=== PATIENT | female | born 1955 | race Caucasian/White ===

== ENCOUNTER 2022-10-05 11:13 | Emergency (ER) | payer BC ==
--- OUTSIDE RECORDS SUMMARY | 2022-10-05 11:18 | XMS REPORT | Continuity of Care Document ---
:1955 Author Organization [facility] t Address [address] [place] [address] [address] [place] [address] Care Team Providers Name Role Phone OUMAR GARVIN Primary Care Physician Unavailable Oumar Garvin Attending Clinician Unavailable Ricardo Robison DO Attending Clinician Oumar Garvin Attending Clinician Unavailable KAMERON PARKS Attending Clinician Unavailable ROSALVA SAENZ Attending Clinician Unavailable Zayda Aguirre Attending Clinician ZAYDA MUELLER Attending Clinician Unavailable Oumar Garvin Admitting Clinician Unavailable Payers Payer Name Policy Type Policy Number Effective Date Expiration Date [facility] [id number] 2004 00:00:00 Problems Condition Condition Condition Status Onset Resolution Last Treating Co mments Source Name Details Category Date Date Treatment Clinician Date Tenosynovi Tenosynovi Disease Active 2020-[address] [facility] tis of 2-23 [facility] finger and finger and 00:00: Me dical hand hand 00 Center Acquired Acquired Disease Active 2020-04 [facility] trigger trigger 2-23 [facility] finger of finger of 00:00: Medi sugey right right 00 Center middle middle finger finger Depression Depression Disease Active U nivers , , 04-25 ity of [place] depression depression Br anch type type Grieving Grieving Disease Active Unive rs 04-25 ity of 00:00: [place] 00 Medical Branch Positive Positive Disease Active 2020-0 Unive rs depression depression 04-25 [place] Sleep Sleep Disease Active 2020-0 Univers difficulti difficulti 04-25 it y of es es 00:00: [place] 00 Medical Branch Allergies, Adverse Reactions, Alerts Allergy Allergy Status Severity Reaction(s) Onset Inactive Treating Comm ents Source Name Type Date Date Clinician HYDROCOD Allergy Active Itching 2020-[address] ONE 06-09 [facility] 00:[facility]: Medical 00 [place] Hydrocod Propensi Active Itching 2020-04 [facility] one ty to 06-09 [facility] adverse 00:00: Medical reaction 00 [place] s Morphine Propensi Active Itching 2020-0 Unive rs ty to -08 ity of adverse 00:00: [place] reaction [address] [facility] Penicill Propensi Active Itching 2020-0 Unive rs in ty to 1-08 ity of adverse 00:00: [place] reaction 00 [facility] Branch MORPHINE DRUG Active ITCHING 2020-0 Univers INGREDI 08 ity of 00:00: [place] 00 Medical Branch PENICILL DRUG Active ITCHING 2020-0 Univers IN INGREDI 08 ity of 00:00: [place] 00 Medical Branch MORPHINE Allergy Active Itching 2020-0 [facility] 04-24 00:00: 00 PENICILL Allergy Active Itching 2020-0 [facility] IN 04-24 00:00: 00 Morphine Drug Active Itching 1-[address] Allergy 04-24 [facility] 00:00: Medical 00 [place] Penicill Drug Active Itching 2020-[address] in Allergy 04-24 [facility] 00:00: Medical 00 [place] No Known DA Active U 2002- [facility] Food 0-02 [facility] [place] No Known DA Active U 2002-04 [facility] Other 0-02 [facility] [place] No Known DA Active U 2002- [facility] Drug 0-02 [facility] Intolera 00:00: [facility] [place] No Known DA Active U 2002-04 [facility] Contrast 0-02 [facility] 00:[facility]: [facility] [place] No Known DA Active U 2002- [facility] Drug 0- [facility] Allergie 00:00: [facility] [place] NO KNOWN Drug Active Univers ALLERGIE Class ity of S [facility] Social History Social Habit Start Date Stop Date Quantity Comments Source History of tobacco Current smoker [facility] Exposure to Not sure University of SARS-CoV-2 (event) [facility] Alcohol intake 2022-01-11 2022-01-11 [facility]er [facility]00 [facility] alcohol Medical Center (finding) Tobacco use and 2021-04-08 2021-04-08 Smokeless [address] [facility] exposure 00:00:00 00:00:00 non-user Medical Center Alcohol Comment 2021-04-08 2021-04-[address] [facility] 00:00:00 00:00:00 Medical Center History SDOH 2020-04-24 2020-04-24 2 University o f Alcohol Frequency 00:00:00 00:00:00 [facility] Branch History SDOH 2020-04-24 2020-04-24 1 University o f Alcohol Std Drinks 00:00:00 00:00:00 [facility] History SDOH 2020-04-24 2020-04-24 1 University o f Alcohol Binge 00:00:00 00:00:00 [facility] al Branch Cigarettes smoked 2020-04-24 2020-04-24 Univers ity of current (pack per 00:00:00 00:00:00 [facility] ) - Reported Branch Cigarette 2020-04-24 2020-04-24 University of pack-years 00:00:00 00:00:00 [facility] Sex Assigned At [address] [facility] 00:00:00 00:00:00 Medical Center Smoking Status Start Date Stop Date Source Ex-smoker 2021-04-08 00:00:00 2021-04-08 00:00:00 [facility] Medications Ordered Filled Start Stop Current Ordering Indication Dosage Frequency Signature Comments Components Source Medication Medication Date Date Medication? Clinician (SIG) Name Name meloxicam 2021- No 15mg QD Take 1 [facility] (Mobic) 15 12-07 tablet (15 Maria Luisa kes MG tablet 00:00: 23:59 mg total) Me dical 00 :00 by mouth Center daily for 30 days. levothyroxi 2020-04 Yes 50ug Take [address] ne 2-24 mcg by Lukes (SYNTHROID, 10:20: mouth Medic al LEVOTHROID) 02 Every Center 50 MCG morning on tablet an empty stomach. buPROPion 2020-04 Yes 150mg QD Take [address] (WELLBUTRIN 2-24 mg by Lukes XL) 150 MG 10:20: mouth Medica l 24 hr 02 daily. Center tablet ALPRAZolam 2020-04 Yes .5mg Take 0.[address] (XANAX) 0.5 2-24 mg by Lukes MG tablet 10:20: mouth Medical 02 every Center night as needed for Anxiety. lisinopril- 2020-04 Yes 1{tbl} QD Take [address] hydroCHLORO 2-23 tablet by Willie es thiazide 10:21: mouth Medical (PRINZIDE,Z 15 daily. Center ESTORETIC) 10-12.5 mg per tablet [place] 600 2020-04 Yes 1{tbl} Take [address] mg Tab 2-13 tablet by Maria Luisakes 00:00: mouth 3 Medical 00 (three) Center times daily with meals. lisinopriL- Yes 1{tbl} Take 1 Un ginny hydrochloro 1-08 tablet by ity of thiazide 16:12: mouth [place] 10-12.5 mg 14 daily. Medical per tablet Branch lisinopriL- Yes 1{tbl} Take 1 Un ginny hydrochloro 1-08 tablet by ity of thiazide 16:12: mouth [place] 10-12.5 mg 14 daily. Medical per tablet Branch levothyroxi Yes Take by Uni vers ne sodium 1-08 mouth. ity of (SYNTHROID 15:48: [place] ORAL) 40 Medical Branch bupropion Yes Take by Unive rs HCl 1-08 mouth. ity of (WELLBUTRIN 15:48: [place] ORAL) 40 Medical Branch levothyroxi Yes Take by Uni vers ne sodium 1-08 mouth. ity of (SYNTHROID 15:48: [place] ORAL) 40 Medical Branch bupropion Yes Take by Unive rs HCl 1-08 mouth. ity of (WELLBUTRIN 15:48: [place] ORAL) 40 [facility] Immunizations Ordered Filled Immunization Date Status Comments Sour e Immunization Name Name Influenza Virus 2020-02-24 Completed Universit y of Vaccine 00:00:00 [facility] Influenza Virus 2020-02-24 Completed Universit y of Vaccine 00:00:00 [facility] TDAP 2020-01-08 Completed University of 00:00:00 [facility] TDAP 2020-01-08 Completed University of 00:00:00 [facility] Zoster Vaccine 2019-05-18 Completed University of Recombinant 00:00:00 [facility] Zoster Vaccine 2019-05-18 Completed University of Recombinant 00:00:00 [facility] Zoster Vaccine 2019-04-17 Completed University of Recombinant 00:00:00 [facility] Zoster Vaccine 2019-04-17 Completed University of Recombinant 00:00:00 [facility] Vital Signs Vital Name Observation Time Observation Value Comments Source HEIGHT 2021-03-29 13:39:00 162.6 cm WEIGHT 2021-03-29 13:39:00 94.348 kg Systolic blood 2020-04-24 15:45:00 146 mm[Hg] [facility] Diastolic blood 2020-04-24 15:45:00 81 mm[Hg] [facility] Heart rate 2020-04-24 15:45:00 85 /min [facility] Body height 2020-04-24 15:45:00 160 cm [facility] Body weight 2020-04-24 15:45:00 86.183 kg [facility] BMI 2020-04-24 15:45:00 33.66 kg/m2 [facility] Oxygen saturation 2020-04-24 15:45:00 95 /min [facility] in Arterial blood Medical anch by Pulse oximetry Systolic blood 2022-01-11 11:11:00 117 mm[Hg] [facility] Diastolic blood 2022-01-11 11:11:00 74 mm[Hg] [facility] Body height 2022-01-11 11:11:[address] [facility] Body weight 2022-01-11 11:11:[address] [facility] BMI 2022-01-11 11:11:00 35.19 kg/m2 [facility] HEIGHT 2021-04-05 12:32:00 162.6 cm WEIGHT 2021-04-05 12:32:00 92.987 kg Procedures Procedure Date / Time Performed Performing Clinician [facility] e XR ANKLE 3 VIEWS RIGHT 2021-12-07 11:51:00 [facility] Plan of Care Planned Activity Planned Date Details Comments Source Future Scheduled 2030-01-07 DTAP/TDAP/TD VACCINES [facility] Test 00:00:00 (2 - Td or Tdap) [code Medic ms Center = DTAP/TDAP/TD VACCINES (2 - Td or Tdap)] Future Scheduled 2023-01-[address] [facility] Test 00:00:00 Counseling and Medical Cente r Screening (12+) [code = Tobacco Cessation Counseling and Screening (12+)] Future Scheduled 2022-12-[address] [facility] Test 00:00:00 (Season Ended) [code = Medic ms Center Influenza Vaccine (Season Ended)] Future Scheduled 2022-04-[address] [facility] Test 00:00:00 (12+) [code = Medical Center DEPRESSION SCREENING (12+)] Future Scheduled 2007-11-21 SHINGLES VACCINES ([address] [facility] Test 00:00:00 2) [code = SHINGLES [facility] VACCINES (1 of 2)] Future Scheduled 2002 Lipid panel (procedure) [facility] Test 00:00:00 [code = 97971073] Medical Ce nter Future Scheduled 1978 Screening for malignant [facility] Test 00:00:00 neoplasm of cervix Medical C enter (procedure) [code = 646885582] Future Scheduled 1975-11-21 HEPATITIS C SCREENING [facility] Test 00:00:00 [code = HEPATITIS C Medical Center SCREENING] Future Scheduled 1958-05-23 COVID-19 VACCINE (#1) [facility] Test 00:00:00 [code = COVID-[address] VACCINE (#1)] Future Scheduled 1957 Screening for malignant [facility] Test 00:00:00 neoplasm of breast Medical C enter (procedure) [code = 102236076] Future Scheduled 1957 CT Colonography (combo) [facility] Test 00:00:00 [code = CT Colonography [facility] (combo)] Future Scheduled 1957 Screening for malignant [facility] Test 00:00:00 neoplasm of colon Medical Ce nter (procedure) [code = 485980774] Future Scheduled 1957 Screening for malignant [facility] Test 00:00:00 neoplasm of colon Medical Ce nter (procedure) [code = 479548016] Future Scheduled 1957 Screening for malignant [facility] Test 00:00:00 neoplasm of colon Medical Ce nter (procedure) [code = 908802695] Future Scheduled 1957 Screening for malignant [facility] Test 00:00:00 neoplasm of colon Medical Ce nter (procedure) [code = 765127464] Future Scheduled 1955 Sigmoidoscopy [code = [facility] Test 00:00:00 Sigmoidoscopy] Medical Cente r Encounters Start End Encounter Admission Attending Care Care Encounter Source Date/Time Date/Time Type Type Clinicians Facility Department ID 2021-11-18 [facility] [id number] Common 16:16:02 Oumar [address] [facility] 2021-11-17 [facility] [id number] Common 13:08:02 Oumar [id number] [facility] 2022-01-11 2022-01-11 Office Ricki[facility] [id number] 11:00:00 16:18:25 Visit [facility] 2021-12-07 2021-12-07 Office Ricki, [facility] [id number] 11:15:00 11:52:17 Visit [facility] 2021-11-26 2021-11-26 Outpatient ENRIQUETA Fernandes ISAAK [id number] [facility] 12:00:00 12:00:00 Oumar 53 [facility] s [facility] 2021-04-08 2021-04-08 Outpatient [facility] [id number] [address] [place] [address] 06:10:00 23:59:00 Bernie mathews of Medicin e 2021-03-29 2021-03-29 Outpatient JOE, [facility] [id number] [facility] 13:32:49 14:19:09 [facility] 2020-10-21 2020-10-21 Outpatient CATHRYN Garvin HCAWH ISAAK [id number] [facility] 12:00:00 12:00:00 Oumar 25 [facility] 2020-04-29 2020-04-29 Outpatient R DANY [facility] [id number] Univers 12:10:00 12:10:00 ROSALVA [facility] 2020-04-24 2020-04-24 [facility] [id number] Univers 09:28:54 11:10:51 Visit Zayda [facility] [id number] i ty of [place] [id number] [place] as Professio [id number] Sc dical [address] Office [facility] 2020-04-24 2020-04-24 [facility] [id number] Univers 09:30:00 09:30:00 [facility] Results Test Description Test Time Test Comments Results Result Comments Source SARS-COV2/RT-PCR ([facility]) 2021-04-07 14:34:04 Test Item Value Reference Range Interpretation Comme nts SARS-COV2/RT-PCR (test code = 3791790) Negative Negative Negative result for this test determines that SARS-CoV-2 RNA was not present in the specimen above the Limit of Detection (LOD). However, Negative results do not preclude SARS-CoV-2 infection and should not be used as the sole basis for treatment or patient management decisions. Negative results must be combined with clinical observations, patient history, and epidemiological information. A false negative result may occur if a specimen is improperly collected, transported, or handled. A false negative result should be considered if patient's recent exposures or clinical presentation indicate that COVID-19 (SARS-CoV-2) is likely and diagnostic tests for other causes of illness are negative. Re-testing should be considered in cases of suspected false negatives.The limit of detection for this assay is 100 copies/mL.This SARS-CoV-2 test is a real-time RT_PCR test intended for the qualitative detection of nucleic acid from SARS-CoV-2 in a nasopharyngeal swab specimen collected from individuals suspected of COVID-19 by their healthcare provider.This test has not been Food and Drug Administration (FDA) cleared or approved. This is a modified version of an approved Emergency Use Authorization (EUA) and is in the process of review by the FDA. Once authorized by the FDA, the issued EUA will be effective until the declaration that circumstances exist justifying the authorization of the emergency use of in vitro diagnostic tests for detection and/or diagnosis of COVID-19 is terminated under Section 564(b)(2) of the Act or the EUA is revoked under Section 564(g) of the Act.Testing was performed using [employer] SARS-CoV-2 assay.Fact Sheet for Healthcare Providers:https://www.Soup.io.greene/terence/RT SARS-CoV-2 HCP Fact Sheet 51- 591220.pdfFact Sheet for Healthcare Patients:https://www.Soup.io.Motion Math/terence/RT SARS-CoV-2 Patient Fact Sheet EN 51-308954U7.pdf Notes Date/Time Note Provider Source 2021-04-08 09:52:25-00:00 KAMERON PARKS [facility] OPERATIVE/PROCEDURE REPORT KAREN VAUGHN FACILITY: [facility] Billing #: [id number] Room: [facility] MR #: [id number] : 1955 DATE OF PROCEDURE: 04/08/2021 SURGEON: Kameron Parks DO PREOPERATIVE DIAGNOSIS: Trigger right middle and ring finger. POSTOPERATIVE DIAGNOSIS: Trigger right middle an d ring finger. PROCEDURE: A1 rip release, right ring and rig ht middle finger with flexor tenosynovectomy right ring an d right middle finger. [employer] MANAGER: LEILA Hickman. ANESTHESIA: Sedation with local. ESTIMATED BLOOD LOSS: Minimal. COMPLICATIONS: None. PATHOLOGY: None. DRAINS: None. INDICATIONS FOR PROCEDURE: The patient is a 65-y ear-old female with history of triggering to her middle and rin g finger on the right side. She has failed conservative manageme nt and she requests operative intervention. The risks and b enefits of the procedure, complications, and alternatives were discussed in detail with the patient and the patient's family , they understood the risks and benefits, gave consent with hesitation. No guarantees were given. Preoperati ve clearance was obtained. Preoperative antibiotic of clindam ycin was given to the patient. Clindamycin was given postoperat ively for 5 days. DVT prophylaxis is not warranted in this c ase. Preoperative COVID test was negative. DESCRIPTION OF PROCEDURE: The patient was ninoska t to the operating room in supine position on a gurney. A ll bony prominences were well padded. The patient was pl aced in the supine position. General anesthesia was performe d by the Department of Anesthesia. The right upper extrem ity was prepped in usual sterile manner. A transverse in cision at the digital palmar crease at the middle and ring fin anthony was performed. Sharp dissection was carried down fro m the skin over fat, blunt dissection through the fat to th e flexor tendon sheath. The flexor tendon sheath was identified along with the A1 rip. A longitudinal incision in the A1 pul trista was performed. There was significant tenosynovitis n oted. The flexor tendons were then introduced through the wound. A significant flexor tenosynovectomy was performed on flexor tendons to both the middle and ring finger. Agai n, both A1 pulleys were released in the ring and middle fin anthony. We then introduced the tendons back in the wound. Copiou s irrigation and lavage was performed. We took the fingers th rough a range of motion and noted to be full without evidence of clicking, locking, or catching. The wounds were then close d with 4-0 nylon followed by injection of a 0.25% Marcaine plain in a field block type fashion. Sterile dressing was a pplied with Xeroform, fluffs, sterile cast padding, and . The patient tolerated the procedure well without any apparen t complication and went to recovery room in satisfactory condit ion. ESM/MODL /[id number]
[2022-10-05] MEDS ORDERED: KETOROLAC 30 MG/ML INJ ONE ×2 (11:53→13:56)
[2022-10-05] MEDS ORDERED: ONDANSETRON 4 MG/2 ML VIAL ONE (11:53)
[2022-10-05] MEDS ORDERED: NA CHLORIDE 0.9% 1,000 ML ONE (11:53)
[2022-10-05] MEDS ORDERED: CIPROFLOXACIN 400mg IV 400 MG/200 ML BAG IV ONE (11:53)
[2022-10-05 11:54] LABS: Absolute Lymphocytes (CBC) 1.7 K/uL (0.7-4.9); Hematocrit 41.8 % (36.0-45.0); Lymphocytes % 15.4 % (15.3-44.8); MCV 87.5 fL (80-100); MPV 10.3 fL (7.6-11.3); RBC Red Blood Cell Count 4.77 M/uL (3.86-4.86)
[2022-10-05 12:03] LABS: Specific Gravity 1.022 (1.005-1.030); Urine Bacteria None Seen /HPF (<20); Urine Bilirubin NEGATIVE (Negative); Urine Blood 3+ (OVER) (Negative); Urine Clarity Extremely Turbid (Clear); Urine Color Yellow (Yellow); Urine Glucose NEGATIVE (Negative); Urine Mucus Slight /HPF (None Seen); Urine Protein TRACE (Negative); Urine RBC >50 /HPF (None Seen); Urine Urobilinogen Normal (Normal)
[2022-10-05 12:11] LABS: Albumin 4.1 g/dL (3.4-5.0); Bilirubin Total 0.7 mg/dL (0.2-1.0); Potassium 3.4 mEq/L (3.5-5.1); Protein, Total 7.4 g/dL (6.4-8.2)
--- NOTE | 2022-10-05 12:21 | RAD REPORT ---
EXAM DESCRIPTION: CT - Abdomen Pelvis Wo Contrast - 10/05/2022 12:07 pm CLINICAL HISTORY: Abdominal pain. R flank pain COMPARISON: [facility] Protocol dated 09/27/2018 TECHNIQUE: CT imaging of the abdomen and pelvis was performed without contrast. Solid organ, bowel a nd vascular assessment is limited due to lack of IV and oral contrast. All CT scans are performed using dose optimization technique as appropriate and may include automated exposure control or mA/KV adjustment according to patient size. FINDINGS: The lower lung toussaint are clear.Cholecystectomy clips. The liver, spleen, pancreas, adrenal glands are within normal limits for a limited non-contrast exami nation. 3 mm stone right UVJ results in moderate right hydronephrosis. Multiple additional small caliceal sto sukh bilaterally. No bowel obstruction, free air, free fluid or abscess. The appendix is normal. The osseous structures are within normal limits. IMPRESSION: 3 mm stone right UVJ results in moderate right hydronephrosis. Additional bilateral nephrolithiasis is present as detailed. No left-sided hydronephrosis. A limited non-contrast examination was performed as detailed.
--- NOTE | 2022-10-05 12:42 | ER ---
Nurse's Notes [facility] Name: Jessie Mays Age: 66 yrs Sex: Female : 1955 Arrival Date: 10/05/2022 Time: 11:13 Bed 20 Private MD: Tessa Angelo C Diagnosis: Calculus of ureter Presentation: 10/05 11:28 Chief complaint: Patient states: R flank pain since this morning along with vomiting. nj1 Pt states she went to see PCP, prescribed abx for UTI, pain got worse and started vomiting after. 11:28 Method Of Arrival: Ambulatory [facility] 11:28 Coronavirus screen: Vaccine status: Patient reports receiving the 2nd dose of the covid nj1 vaccine. Ebola Screen: Patient denies travel to an Ebola-affected area in the 21 days before illness onset. Initial Sepsis Screen: Does the patient meet any 2 criteria? No. Patient's initial sepsis screen is negative. Does the patient have a suspected source of infection? No. Patient's initial sepsis screen is negative. Risk Assessment: Do you want to hurt yourself or someone else? Patient reports no desire to harm self or others. Onset of symptoms was October 05, 2022. 11:28 Acuity: CYRUS 3 nj1 Historical: - Allergies: 11:41 Morphine; nj1 11:41 PENICILLINS; nj1 - PMHx: 11:41 Hypertensive disorder; Hypothyroidism; Depressive disorder; nj1 - PSHx: 11:41 Cholecystectomy; nj1 - Immunization history:: Client reports receiving the 2nd dose of the Covid vaccine. - Social history:: Smoking status: Patient denies any tobacco usage or history of. - Family history:: not pertinent. Screenin:[address] [facility] ED Fall Risk Assessment (Adult) History of falling in the last 3 months, nj1 including since admission No falls in past 3 months (0 pts) Confusion or Disorientation No (0 pts) Intoxicated or Sedated No (0 pts) Impaired Gait No (0 pts) Mobility Assist Device Used No (0 pt) Altered Elimination No (0 pt) Score/Fall Risk Level 0 - 2 = Low Risk Oriented to surroundings, Maintained a safe environment, Hourly rounding (assess needs \T\ fall precautionary measures) done. Abuse screen: Denies threats or abuse. Denies injuries from another. Nutritional screening: No deficits noted. Tuberculosis screening: No symptoms or risk factors identified. Assessment: 11:30 General: Appears in no apparent distress. uncomfortable, Behavior is calm, cooperative, nj1 appropriate for age. Pain: Complains of pain in flank, right Pain radiates to abdomen Pain currently is 10 out of 10 on a pain scale. Neuro: Level of Consciousness is awake, alert, obeys commands, Oriented to person, place, time, situation. Cardiovascular: Patient's skin is warm and dry. Respiratory: Airway is patent Respiratory effort is even, unlabored. GI: Pt is actively vomiting bile, Reports nausea, vomiting, Flank, right. 12:45 Reassessment: Patient appears in no apparent distress at this time. Patient and/or nj1 family updated on plan of care and expected duration. Pain level reassessed. Patient is alert, oriented x 3, equal unlabored respirations, skin warm/dry/pink. Patient denies pain at this time. Patient states feeling better. Patient states symptoms have improved. 13:50 Reassessment: Patient appears in no apparent distress at this time. Patient and/or nj1 family updated on plan of care and expected duration. Pain level reassessed. Patient is alert, oriented x 3, equal unlabored respirations, skin warm/dry/pink. Patient states feeling better. Vital Signs: 11:28 BP 121 / 70; Pulse 74; Resp 18; Temp 97.9(O); Pulse Ox 99% on R/A; Weight 97.07 kg; nj1 Height 5 ft. 4 in. ; Pain 10/10; 12:45 BP 104 / 72; Pulse 74; Resp 18; Pulse Ox 98% on R/A; Pain 0/10; nj1 13:50 BP 119 / 65; Pulse 68; Resp 18; Pulse Ox 100% on R/A; Pain 2/10; nj1 11:28 Body Mass Index 36.73 (97.07 kg, 162.56 cm) nj1 11:28 Pain Scale: Adult nj1 12:45 Pain Scale: Adult nj1 13:50 Pain Scale: Adult nj1 ED Course: 11:16 Patient arrived in ED. rg4 11:16 Tessa Angelo MD is Private Physician. rg4 11:20 Ben Collier MD is Attending Physician. rt 11:21 Elle Valdez RN is Primary Nurse. nj1 11:30 Patient has correct armband on for positive identification. Bed in low position. Call nj1 light in reach. 11:35 Inserted saline lock: 20 gauge in right antecubital area, using aseptic technique. nj1 Blood collected. 11:41 Triage completed. nj1 11:54 Arm band placed on. nj1 12:09 CT Abd/Pelvis - Without Contrast In Process Unspecified. EDMS 12:42 Luis Becker MD is Referral Physician. rt 13:55 No provider procedures requiring assistance completed. IV discontinued, intact, nj1 bleeding controlled. Administered Medications: 11:45 Drug: NS 0.9% IV 1000 ml Route: IV; Rate: 1 bolus; Site: right antecubital; nj1 13:40 Follow up: Response: No adverse reaction; IV Status: Completed infusion; IV Intake: nj1 1000ml 11:45 Drug: Ketorolac IVP 15 mg Route: IVP; Site: right antecubital; nj1 12:49 Follow up: Response: No adverse reaction nj1 11:45 Drug: Ondansetron IVP 4 mg Route: IVP; Site: right antecubital; nj1 12:49 Follow up: Response: No adverse reaction nj1 12:49 Not Given (Physician Discretion): Ciprofloxacin IVPB 400 mg 200 ml IVPB once over 60 nj1 mins 13:50 Drug: Ketorolac IVP 15 mg Route: IVP; Site: right antecubital; nj1 13:59 Follow up: Response: No adverse reaction nj1 Medication: 14:01 VIS not applicable for this client. nj1 Intake: 13:40 IV: 1000ml; Total: 1000ml. nj1 Outcome: 12:42 Discharge ordered by MD. rt 13:55 Discharged to home ambulatory, with family. nj1 13:55 Condition: stable 13:55 Discharge instructions given to patient, family, Instructed on discharge instructions, follow up and referral plans. medication usage, Demonstrated understanding of instructions, follow-up care, medications, Prescriptions given X 3. 14:02 Patient left the ED. nj1 Signatures: Dispatcher [employer] EDMS Madhuri Simmons rg4 Ben Collier MD MD rt Elle Valdez RN RN nj1 Corrections: (The following items were deleted from the chart) 11:51 11:20 Inserted saline lock: 20 gauge in right antecubital area, using aseptic nj1 technique. Blood collected. nj1
--- NOTE | 2022-10-05 12:43 | EDPHYS ---
Physician Documentation [facility] Name: Jessie Mays Age: 66 yrs Sex: Female : 1955 Arrival Date: 10/05/2022 Time: 11:13 Bed 20 Private MD: Tessa Angelo C ED Physician Ben Collier HPI: 10/05 12:03 This 66 yrs old Female presents to ER via Ambulatory with complaints of Nausea, Urinary rt Problem. 12:03 Patient presents to the ED with concerns for UTI, possible kidney stone. The patient rt stated that she felt thirsty than usual yesterday evening but otherwise felt well. Patient woke up this morning with a pain to the right flank rating to the right upper quadrant with associated nausea and vomiting as well as a tingling sensation with urination. Patient went to her primary care provider's office this morning, was prescribed Cipro, tramadol, Zofran but was unable to take the medicines due to vomiting. Patient denies other acute complaints at this time. Pain is sharp in nature, not otherwise radiating, no other aggravating or alleviating factors.. Historical: - Allergies: 11:41 Morphine; nj1 11:41 PENICILLINS; nj1 - PMHx: 11:41 Hypertensive disorder; Hypothyroidism; Depressive disorder; nj1 - PSHx: 11:41 Cholecystectomy; nj1 - Immunization history:: Client reports receiving the 2nd dose of the Covid vaccine. - Social history:: Smoking status: Patient denies any tobacco usage or history of. - Family history:: not pertinent. ROS: 12:03 Constitutional: Negative for fever, chills, and weight loss, Cardiovascular: Negative rt for chest pain, palpitations, and edema, Respiratory: Negative for shortness of breath, cough, wheezing, and pleuritic chest pain, MS/Extremity: Negative for injury and deformity, Skin: Negative for injury, rash, and discoloration, Neuro: Negative for headache, weakness, numbness, tingling, and seizure, Psych: Negative for depression, anxiety, suicide ideation, homicidal ideation, and hallucinations. 12:03 Abdomen/GI: Positive for nausea and vomiting, Negative for diarrhea. 12:03 Back: Positive for flank pain, Negative for pain with movement. Exam: 12:03 Constitutional: This is a well developed, well nourished patient who is awake, alert, rt and in no acute distress. Head/Face: Normocephalic, atraumatic. Chest/axilla: Normal chest wall appearance and motion. Nontender with no deformity. No lesions are appreciated. Cardiovascular: Regular rate and rhythm with a normal S1 and S2. No gallops, murmurs, or rubs. Normal PMI, no JVD. No pulse deficits. Respiratory: Lungs have equal breath sounds bilaterally, clear to auscultation and percussion. No rales, rhonchi or wheezes noted. No increased work of breathing, no retractions or nasal flaring. Abdomen/GI: Soft, non-tender, with normal bowel sounds. No distension or tympany. No guarding or rebound. No evidence of tenderness throughout. Skin: Warm, dry with normal turgor. Normal color with no rashes, no lesions, and no evidence of cellulitis. MS/ Extremity: Pulses equal, no cyanosis. Neurovascular intact. Full, normal range of motion. Neuro: Awake and alert, GCS 15, oriented to person, place, time, and situation. Cranial nerves II-XII grossly intact. Motor strength 5/5 in all extremities. Sensory grossly intact. Cerebellar exam normal. Normal gait. Psych: Awake, alert, with orientation to person, place and time. Behavior, mood, and affect are within normal limits. Vital Signs: 11:28 BP 121 / 70; Pulse 74; Resp 18; Temp 97.9(O); Pulse Ox 99% on R/A; Weight 97.07 kg; nj1 Height 5 ft. 4 in. ; Pain 10/10; 12:45 BP 104 / 72; Pulse 74; Resp 18; Pulse Ox 98% on R/A; Pain 0/10; nj1 13:50 BP 119 / 65; Pulse 68; Resp 18; Pulse Ox 100% on R/A; Pain 2/10; nj1 11:28 Body Mass Index 36.73 (97.07 kg, 162.56 cm) nj1 11:28 Pain Scale: Adult nj1 12:45 Pain Scale: Adult nj1 13:50 Pain Scale: Adult nj1 MDM: 11:32 Patient medically screened. rt 13:05 Differential diagnosis: Pyelonephritis, ureterolithiasis. Data reviewed: vital signs, rt nurses notes, lab test result(s), radiologic studies. I considered the following discharge prescriptions or medication management in the emergency department Medications were administered in the Emergency Department. See MAR. Independent interpretation of the following test(s) in the Emergency Department CT Scan: My interpretation is Ureterolithiasis seen on my interpretation of the CT scan images. Test considered but Not performed: Ultrasound Remote cholecystectomy, gallbladder ultrasound not indicated. Care significantly affected by the following chronic conditions: Hypertension. Counseling: I had a detailed discussion with the patient and/or guardian regarding: the historical points, exam findings, and any diagnostic results supporting the discharge/admit diagnosis, lab results, radiology results, the need for outpatient follow up, to return to the emergency department if symptoms worsen or persist or if there are any questions or concerns that arise at home. Response to treatment: the patient's symptoms have markedly improved after treatment. 10/05 11:42 Order name: CBC with Diff; Complete Time: 12:01 rt 10/05 11:42 Order name: CMP; Complete Time: 12:12 rt 10/05 11:42 Order name: Lipase; Complete Time: 12:12 rt 10/05 11:42 Order name: UAM; Complete Time: 12:12 rt 10/05 11:42 Order name: CT Abd/Pelvis - Without Contrast; Complete Time: 12:23 rt Administered Medications: 11:45 Drug: NS 0.9% IV 1000 ml Route: IV; Rate: 1 bolus; Site: right antecubital; nj1 13:40 Follow up: Response: No adverse reaction; IV Status: Completed infusion; IV Intake: nj1 1000ml 11:45 Drug: Ketorolac IVP 15 mg Route: IVP; Site: right antecubital; nj1 12:49 Follow up: Response: No adverse reaction nj1 11:45 Drug: Ondansetron IVP 4 mg Route: IVP; Site: right antecubital; nj1 12:49 Follow up: Response: No adverse reaction nj1 12:49 Not Given (Physician Discretion): Ciprofloxacin IVPB 400 mg 200 ml IVPB once over 60 nj1 mins 13:50 Drug: Ketorolac IVP 15 mg Route: IVP; Site: right antecubital; nj1 13:59 Follow up: Response: No adverse reaction nj1 Disposition Summary: 10/05/22 12:42 Discharge Ordered Location: Home rt Problem: new rt Symptoms: have improved rt Condition: Stable rt Diagnosis - Calculus of ureter rt Followup: rt - With: Luis Becker MD - When: 2 - 3 days - Reason: Discharge Instructions: - Discharge Summary Sheet rt - Kidney Stones rt Forms: - Medication Reconciliation Form rt - Thank You Letter rt - Antibiotic Education rt - Prescription Opioid Use rt Prescriptions: - ketorolac 10 mg Oral tablet - take 1 tablet by ORAL route every 6 hours for 2 days as needed for pain; do not rt exceed 4 doses per 24 hrs; 8 tablet; Refills: 0, Product Selection Permitted - ondansetron 4 mg Oral Tablet,disintegrating - take 1 tablet by ORAL route every 6 hours; 21 tablet; Refills: 0, Product rt Selection Permitted - Tramadol 50 mg Oral Tablet - take 1 tablet by ORAL route every 8 hours as needed; 18 tablet; Refills: 0, rt Product Selection Permitted Signatures: Dispatcher [employer] Ben Petit MD MD rt Elle Valdez RN RN nj1
[2022-10-05 14:20] VITALS: TEMP 97.9
[2022-10-05 14:32] VITALS: BP 119/65; O2SAT 100
== END 2022-10-05 14:02 | disposition home or self-care (01) ==
LOC: ER 11:13
DX: N20.1 Calculus of ureter (principal); Z88.0 Allergy status to penicillin; Z88.5 Allergy status to narcotic agent
CPT/HCPCS: 85025; 81001; 36415; 83690; 80053; 74176; J2405; J0744; J7030